=== PATIENT | female | born 1990 ===

== ENCOUNTER 2016-11-14 16:37 | Emergency (ER) | payer MEDICAID, OTHER ==
[2016-11-14 16:37] VITALS: BMI 37.5
[2016-11-14 16:47] VITALS: TEMP 98.7; O2SAT 99
[2016-11-14 16:50] VITALS: RESP 18
[2016-11-14 17:33] LABS: URINE APPEARANCE CLEAR (CLEAR); URINE BILIRUBIN NEGATIVE (NEGATIVE); URINE BLOOD NEGATIVE (NEGATIVE); URINE COLOR YELLOW (YELLOW); URINE GLUCOSE (UA) NEGATIVE (NEGATIVE); URINE KETONE TRACE mg/dL (NEGATIVE); URINE LEUKOCYTE ESTERASE NEGATIVE Leu/uL (NEGATIVE); URINE PROTEIN 30 mg/dL (<30 mg/dL)
[2016-11-14 17:54] LABS: URINE BACTERIA MOD (NEG); URINE RBC NEGATIVE /hpf (0-2)
[2016-11-14 18:01] VITALS: BP 114/79; PULSE 94
[2016-11-14] MEDS ORDERED: cefTRIAXone (Rocephin) 250 mg Inj IM STA (18:16)
--- NOTE | 2016-11-14 18:16 | ED PDOC ---
Arrival/HPI - General Chief Complaint: Abdominal Pain Time Seen by Provider: 11/14/16 16:48 Historian: Patient - History of Present Illness Narrative History of Present Illness (Text): 11/14/16 18:18 Patient complains of 2 day h/o intermittent non-radiating pressure like pelvic pain, worse with any heavy lifting. Otherwise: (-) nausea / vomiting, (-) diarrhea, (-) constipation, (-) vaginal d/c or bleeding, (-) urinary symptoms, ( -) fever, (-) melena, (-) hematochezia, (-) dyspareunia, (-) changes in sexual partners / activity. Has history of prior abdominal surgery - 3 c-sections. Of note, patient's LMP was 2 months ago, she did a HPT yesterday and was (-). PMD none Past Medical History - Provider Review Nursing Documentation Reviewed: Yes - Infectious Disease Hx of Infectious Diseases: None - Past Medical History Past Medical History: No Previous - Psychiatric Hx Depression: No Hx Substance Use: No - Past Surgical History Past Surgical History: No Previous - Surgical History Hx Section: Yes (X 2) - Anesthesia Hx Anesthesia: Yes Hx Anesthesia Reactions: No Hx Malignant Hyperthermia: No - Suicidal Assessment Feels Threatened In Home Enviroment: No Family/Social History - Physician Review Nursing Documentation Reviewed: Yes Family/Social History: No Known Family HX Smoking Status: Never Smoked Hx Alcohol Use: Yes Frequency of alcohol use: Socially Hx Substance Use: No Hx Substance Use Treatment: No Allergies/Home Meds Allergies/Adverse Reactions: Allergies No Known Allergies Allergy (Verified 11/14/16 16:47) Review of Systems - Review of Systems Constitutional: Normal. absent: Fatigue, Weight Change, Fevers Respiratory: Normal. absent: SOB, Cough, Sputum Cardiovascular: Normal. absent: Chest Pain, Palpitations Gastrointestinal: Normal, Other (pelvic pain). absent: Abdominal Pain, Stool Changes, Vomiting, Appetite Changes Genitourinary Female: Normal. absent: Dysuria, Frequency, Hematuria, Vaginal Bleeding, Vaginal Discharge Musculoskeletal: Normal. absent: Arthralgias, Back Pain, Neck Pain Skin: Normal. absent: Rash, Pruritis, Skin Lesions Physical Exam - Physical Exam Narrative Physical Exam (Text): 11/14/16 18:20 GENERAL APPEARANCE: Patient is awake, alert, oriented x 3, in no acute distress. SKIN: Warm, dry; (-) cyanosis. EYES: (-) conjunctival pallor, (-) scleral icterus. ENMT: Mucous membranes moist. NECK: (-) tenderness, (-) stiffness, (-) lymphadenopathy. CHEST AND RESPIRATORY: (-) rales, (-) rhonchi, (-) wheezes; breath sounds equal bilaterally. HEART AND CARDIOVASCULAR: (-) irregularity; (-) murmur, (-) gallop. ABDOMEN AND GI: (-) distention. Bowel sounds active; (+) mild tenderness to the suprapubic area, (-) guarding, (-) rebound, (-) palpable masses, (-) CVA tenderness. PELVIC: normal external genitalia, (+) scant thick white vaginal discharge, (-) CMT tenderness, (+) mild uterine tenderness, (-) adnexal tenderness or mass. A female EMT, was present during the entire exam. EXTREMITIES: (-) deformity, (-) edema, (+) distal pulses. NEURO AND PSYCH: Mental status as above; (-) focal findings. Vital Signs Temp Pulse Resp BP Pulse Ox 11/14/16 18:01 94 H 18 114/79 99 11/14/16 16:50 98.7 F 103 H 18 116/81 99 11/14/16 16:41 98.7 F 103 H 19 116/81 99 Medical Decision Making ED Course and Treatment: 11/14/16 18:21 26 yo F c/o 2 day h/o intermittent non-radiating pressure like pelvic pain, worse with any heavy lifting. DDx : UTI, PID, r/o ectopic Plan : - Uhcg - UA - Urine cx Uhcg (-). UA is (-), urine culture is pending. Urine results d/w the patient in great detail. Patient notified of likely dx of PID. Given rocephin 250 mg IM and Rx for doxycycline x 14 days. Advised to follow up with the clinic in 1-2 days without fail. Advised to take medication as prescribed. Return to the emergency room at any time for any new or worsening symptoms. Patient states she fully agrees with and understands discharge instructions. States that she agrees with the plan and disposition. Verbalized and repeated discharge instructions and plan. I have given the patient opportunity to ask any additional questions. - Lab Interpretations Lab Results: Lab Results 11/14/16 17:14: Urine Color Yellow, Urine Appearance Clear, Urine pH 6.0, Ur Specific [place] >= 1.030, Urine Protein 30 H, Urine Glucose (UA) Negative, Urine Ketones Trace H, Urine Blood Negative, Urine Nitrate Negative, Urine Bilirubin Negative, Urine Urobilinogen 1.0 H, Ur Leukocyte Esterase Negative, Urine RBC Negative, Urine WBC 2 - 5, Ur Epithelial Cells 10 - 12, Urine Bacteria Mod - Medication Orders Current Medication Orders: Discontinued Medications Ceftriaxone Sodium (Rocephin) 250 mg IM STAT STA PRN Reason: Protocol Stop: 11/14/16 18:17 Last Admin: 11/14/16 18:35 Dose: 250 mg Lidocaine HCl (Lidocaine 1% (20ml)) Confirm Administered Dose 20 ml .ROUTE .[facility]og[facility]est- MED ONE Stop: 11/14/16 18:32 - PA / YARD CALLER / Resident Statement / has reviewed & agrees with the documentation as recorded. Disposition/Present on Arrival - Present on Arrival Any Indicators Present on Arrival: No History of DVT/PE: No History of Uncontrolled Diabetes: No Urinary Catheter: No History of Decub. Ulcer: No History Surgical Site Infection Following: None - Disposition Have Diagnosis and Disposition been Completed?: Yes Diagnosis: Pelvic pain, PID (pelvic inflammatory disease) Disposition: HOME/ ROUTINE Disposition Time: 18:00 Patient Plan: Discharge Condition: STABLE Discharge Instructions (ExitCare): Pelvic Inflammatory Disease (ED), Pelvic Pain in Women (ED) Print Language: MOHAWK Additional Instructions: Thank you for letting us take care of you today. You were treated for pelvic pain, PID. The emergency medical care you received today was directed at your acute symptoms. If you were prescribed any medication, please fill it and take as directed. It may take several days for your symptoms to resolve. Return to the Emergency Department if your symptoms worsen, do not improve, or if you have any other problems. Please contact the clinic in 2 days for re-evaluation and follow up. Bring any paperwork you were given at discharge with you along with any medications you are taking to your follow up visit. Our treatment cannot replace ongoing medical care by a primary care provider (PCP) outside of the emergency department. Thank you for allowing the [facility] team to be part of your care today. If you had an STI test: It will take 48 hours for the results. Please call after 1 week if you have not heard back. Prescriptions: Doxycycline Hyclate 100 mg PO BID #28 capsule Referrals: Pasquale William MD [Primary Care Provider] - Follow up with primary [facility] [Outside] - Follow up with primary Forms: [employer] (Congolese), WORK NOTE
[2016-11-14] MEDS ORDERED: Lidocaine 1% Inj (20ml) ONE (18:31)
== END 2016-11-14 19:00 | disposition home or self-care (01) ==
LOC: ED 16:37
DX: R10.2 Pelvic and perineal pain (principal); N73.9 Female pelvic inflammatory disease, unspecified
CPT/HCPCS: 81001; 87086; 87491; 87591; 96372; 99283; J0696

== ENCOUNTER 2017-09-14 14:14 | Emergency (ER) | payer MEDICAID, OTHER ==
[2017-09-14 14:14] VITALS: BMI 37.5
[2017-09-14 15:03] VITALS: RESP 18
[2017-09-14 15:31] LABS: PH,URINE 7.5 (4.7-8.0); URINE APPEARANCE CLEAR (CLEAR); URINE BILIRUBIN NEGATIVE (NEGATIVE); URINE BLOOD MODERATE (NEGATIVE); URINE COLOR YELLOW (YELLOW); URINE GLUCOSE (UA) NEGATIVE (NEGATIVE); URINE LEUKOCYTE ESTERASE TRACE Leu/uL (NEGATIVE); URINE PROTEIN 30 mg/dL (<30 mg/dL)
[2017-09-14 15:36] LABS: URINE BACTERIA TRACE (NEG); URINE EPITHELIAL CELLS 0 - 2 /hpf (0-5)
--- NOTE | 2017-09-14 15:49 | ED PDOC ---
Arrival/HPI - General Chief Complaint: Female Genitourinary Time Seen by Provider: 09/14/17 14:48 Historian: Patient - History of Present Illness Narrative History of Present Illness (Text): 09/14/17 15:36 27-year-old female presents today with a one-day history with slight dysuria, hesitancy and frequency. Patient states she also noted some blood after urinating today. Patient complaining of slight lower abdominal pain. Denies fevers or chills. Denies nausea vomiting diarrhea or constipation. Patient denies headaches dizziness or weakness. Patient with a history of UTIs in the past states that some symptoms are very similar. He is complaining of bilateral low back pain. No chest pain or shortness of breath. No other complaints. Past Medical History - Provider Review Nursing Documentation Reviewed: Yes - Travel History Have you recently traveled outside [place] w/in the past 3 mons?: No - Infectious Disease Hx of Infectious Diseases: None - Reproductive Menopause: No - Past Medical History Past Medical History: No Previous - Cardiac Hx Cardiac Disorders: No - Psychiatric Hx Depression: No Hx Substance Use: No - Past Surgical History Past Surgical History: No Previous - Surgical History Hx Section: Yes (X 2) - Anesthesia Hx Anesthesia: Yes Hx Anesthesia Reactions: No Hx Malignant Hyperthermia: No - Suicidal Assessment Feels Threatened In Home Enviroment: No Family/Social History - Physician Review Nursing Documentation Reviewed: Yes Family/Social History: Unknown Family HX Smoking Status: Never Smoked Hx Alcohol Use: Yes Hx Substance Use: No Hx Substance Use Treatment: No Allergies/Home Meds Allergies/Adverse Reactions: Allergies No Known Allergies Allergy (Verified 07/03/17 00:29) Review of Systems - Review of Systems Constitutional: absent: Fatigue, Fevers Respiratory: absent: SOB, Cough Cardiovascular: absent: Chest Pain, Palpitations Gastrointestinal: Abdominal Pain. absent: Constipation, Diarrhea, Nausea, Vomiting Genitourinary Female: Dysuria, Frequency, Hematuria. absent: Vaginal Bleeding, Vaginal Discharge Musculoskeletal: Back Pain. absent: Arthralgias, Neck Pain Skin: absent: Rash, Pruritis Neurological: absent: Headache, Dizziness Psychiatric: absent: Anxiety, Depression Physical Exam Vital Signs Reviewed: Yes Vital Signs Temp Pulse Resp BP Pulse Ox 09/14/17 14:59 99.2 F 98 H 18 107/75 98 Temperature: Afebrile Blood Pressure: Normal Pulse: Regular Respiratory Rate: Normal Appearance: Positive for: Well-Appearing, Non-Toxic, Comfortable Pain Distress: None Mental Status: Positive for: Alert and Oriented X 3 - Systems Exam Head: Present: Atraumatic Mouth: Present: Moist Mucous Membranes Neck: Present: Normal Range of Motion Respiratory/Chest: Present: Clear to Auscultation Cardiovascular: Present: Regular Rate and Rhythm, Normal S1, S2. No: Murmurs Abdomen: No: Tenderness, Distention, Peritoneal Signs, Rebound, Guarding Back: Present: Normal Inspection. No: CVA Tenderness, Midline Tenderness, Paraspinal Tenderness Upper Extremity: Present: Normal ROM Lower Extremity: Present: Normal ROM Neurological: Present: GCS=15, Speech Normal Skin: Present: Warm, Dry, Normal Color. No: Rashes Psychiatric: Present: Alert, Oriented x 3 Medical Decision Making ED Course and Treatment: 09/14/17 15:50 Patient is nontoxic well-appearing in no distress with stable vital signs Urinalysis:+ leukocytes, + blood, + bacteria Urine culture: pending keflex given PO for UTI. advised follow up with the primary care physician and climbing guide/urologist within the next 2 days. advised immediate return if symptoms worsen,persist or if new symptoms develop. Advised taking antibiotics as prescribed. Patient verbalizes understanding of discharge instructions and need for immediate followup. all aspects of this case were discussed the attending of record. Impression: Urinary tract infection Motrin every 6 hours as needed for pain Keflex one capsule twice daily 7 days Pyridium one tablet twice daily x3 days Followup with primary care physician within the next 2 days Follow up with the urologist for the next 2 days Return if symptoms worsen persist or if new symptoms develop; high fevers, increasing pain, vomiting, dizziness, weakness or if any other concerning symptoms develop. - Lab Interpretations Lab Results: Lab Results 09/14/17 15:16: Urine Color Yellow, Urine Appearance Clear, Urine pH 7.5, Ur Specific [place] 1.020, Urine Protein 30 H, Urine Glucose (UA) Negative, Urine Ketones Negative, Urine Blood Moderate H, Urine Nitrate Negative, Urine Bilirubin Negative, Urine Urobilinogen 1.0 H, Ur Leukocyte Esterase Trace H, Urine RBC 1 - 3, Urine WBC 2 - 5, Ur Epithelial Cells 0 - 2, Urine Bacteria Trace Disposition/Present on Arrival - Present on Arrival Any Indicators Present on Arrival: No History of DVT/PE: No History of Uncontrolled Diabetes: No Urinary Catheter: No History of Decub. Ulcer: No History Surgical Site Infection Following: None - Disposition Have Diagnosis and Disposition been Completed?: Yes Diagnosis: UTI (urinary tract infection) Disposition: HOME/ ROUTINE Disposition Time: 16:09 Patient Plan: Discharge Patient Problems: Current Active Problems Problem Status Onset UTI (urinary tract infection) Acute Condition: GOOD Discharge Instructions (ExitCare): Urinary Tract Infection, Adult (DC) Additional Instructions: Motrin every 6 hours as needed for pain Keflex one capsule twice daily 7 days Pyridium one tablet twice daily x3 days Followup with primary care physician within the next 2 days Follow up with the urologist for the next 2 days Return if symptoms worsen persist or if new symptoms develop; high fevers, increasing pain, vomiting, dizziness, weakness or if any other concerning symptoms develop. Prescriptions: Cephalexin [Keflex] 500 mg PO BID #14 capsule Ibuprofen [Motrin] 600 mg PO Q6H PRN #20 tab PRN Reason: pain/fever reduction Phenazopyridine [Phenazopyridine HCl] 200 mg PO BID #6 tab Referrals: Manisha Horowitz MD [Staff Provider] - Follow up with primary [facility] [Outside] - Follow up with primary Forms: [email or web address] (Croatian), WORK NOTE
[2017-09-14 16:38] VITALS: BP 124/72; PULSE 89; TEMP 98.3; O2SAT 100
== END 2017-09-14 16:32 | disposition home or self-care (01) ==
LOC: ED 14:14
DX: N39.0 Urinary tract infection, site not specified (principal)